=== PATIENT | male | born 1970 | race Caucasian/White ===

== ENCOUNTER 2016-12-22 15:27 | Observation (INO) ==
[2016-12-22] MEDS ORDERED: ceFAZolin 1,000 MG VIAL IM ONE (16:03)
[2016-12-22] MEDS ORDERED: DIPH/TET/ACEL PERT BOOSTER VACCINE 0.5 ML VIAL IM ONE ×2 (16:03→17:02)
--- NOTE | 2016-12-22 16:11 | Emergency Department Note ---
Goyo Chance Brittany, am scribing for, and in the presence of, Randy Jo MD 16:08. Deysi Chance Charles R, MD, personally performed the services described in this documentation, ascribed by Darcy Nance in my presence, and it is both accurate and complete 611 . Arrival - Arrival Chief Complaint: Extremity Injury Stated Complaint: cut the tip of his finger off ED Nursing Triage Note: C/o amputation to tip of left 3rd finger. States he got finger caught between two pieces of metal while at work earlier today. No active bleeding noted. Wound cleaned and dressed in triage. Mode of Arrival: Ambulatory Limitations: No Limitations Source: Patient, Significant other, RN Notes Reviewed Time Seen by Provider: 12/22/16 15:57 - History of Present Illness HPI Narrative: Patient is a 46 y/o white male presenting to the ED with c/o amputation of the left ring finger just prior to arrival. Patient states that he was working with a scissor lift when the tip of his left ring finger got caught between two sheets of metal, amputating distally through the middle of the nail bed. Patient says that at the moment he is not having any pain, just feels numbness. He is able to move the digit normally with normal sensation. No active bleeding noted. Patient is not in any acute distress. No other complaint/pain. Onset (ago): minute(s) Consistency: constant Allergies/Adverse Reactions: Allergies Allergy/AdvReac Type Severity Reaction Status Date / Time No Known Allergies Allergy Verified 12/22/16 15:43 Home Medications: Home Medications Medication Instructions Recorded Confirmed Type Diazepam Tab [Valium Tab] 10 mg PO DAILY 12/22/16 12/22/16 History Escitalopram [Lexapro] 20 mg PO DAILY 12/22/16 12/22/16 History Lisinopril [Zestril] 40 mg PO DAILY 12/22/16 12/22/16 History hydroCHLOROthiazide 12.5 mg PO DAILY 12/22/16 12/22/16 History [Hydrochlorothiazide] Review of System - Review of System 12 point system: reviewed and no additional remarkable complaints except as stated - Review of System Constitutional: Absent: chills, fever Head/Ears/Nose/Throat: Absent: nasal drainage Respiratory: Absent: respiratory distress Musculoskeletal: Present: as per HPI Skin: Present: as per HPI Medical,Surgical,& Family Hx - Medical History Cardio: History of: Hypertension Psychological: History of: Anxiety Disorders - Social History Smoking Status: Never smoker Frequency of Alcohol Use: None Type of Drug Use: None Exam Vital Signs: Vital Signs Temperature 98.9 F 12/22/16 16:06 Pulse Rate 95 H 12/22/16 16:06 Respiratory Rate 18 12/22/16 16:06 Blood Pressure 109/58 12/22/16 16:06 O2 Sat by Pulse Oximetry 96 12/22/16 15:39 - General Exam limited due to: other (exam limited to left ring finger) General appearance: alert, in no apparent distress - Head Head exam: Present: normocephalic - Eye Eye exam: Present: normal appearance, PERRL, EOMI - Neck Neck exam: Present: normal inspection - Chest Chest inspection: Present: normal inspection - Respiratory Respiratory exam: Present: normal lung sounds bilaterally - Cardiovascular Cardiovascular exam: Present: regular rate, normal rhythm, normal heart sounds - Extremities Exam Extremities exam: Present: full ROM. Absent: normal inspection (amputation of the tip of the left ring finger through mid nailbed distally, able to move normally and is neurovascularly intact despite feeling numbness, no active bleeding), tenderness - Neurological Exam Neurological exam: Present: alert, oriented X3, CN II-XII intact. Absent: motor sensory deficit - Psychiatric Psychiatric exam: Present: normal affect, normal mood - Skin Skin exam: Present: warm, dry Course - Consultations Consultation #1: Dr. Cortes will take patient to surgery for the distal traumatic amputation of the fourth phalanx Time: 16:16 Results - Diagnostic Findings Procedure: X-ray: report reviewed by me (Finger XR: Amputation of the tip of the left ring finger, possibly including the distal edge of the tuft of the distal phalanx.) Disposition Clinical Impression: Left Distal phalanx traumatic amputation, Fracture, finger, distal phalanx, open, Nailbed injury Case discussed with: patient, patient's family Condition: Stable Time of Disposition: 16:20
--- NOTE | 2016-12-22 16:19 | XRay Report ---
XR finger LT Indication: Amputation. Left ring finger 3 views: Soft tissue amputation of the tip of the left ring finger is present with exposure of the tuft of the distal phalanx. A portion of the tuft may be amputated as well but no significant residual fracture line is seen. No dislocation. Impression: Amputation of the tip of the left ring finger, possibly including the distal edge of the tuft of the distal phalanx. PROCEDURE INTERPRETED AT [facility] DEPARTMENT OF RADIOLOGY Final Report Signed by: Gume Eller M.D.
[2016-12-22] MEDS ORDERED: ceFAZolin 1,000 MG VIAL ONE (17:01)
--- NOTE | 2016-12-22 17:34 | Orthopedic History & Physical ---
History of Present Illness Chief complaint: Fingertip amputation left ring History of present illness: Mr. Hardin is a 46 year old male See dictated report Home Medications Medication Instructions Recorded Confirmed Type Diazepam Tab [Valium Tab] 10 mg PO DAILY 12/22/16 12/22/16 History Escitalopram [Lexapro] 20 mg PO DAILY 12/22/16 12/22/16 History Lisinopril [Zestril] 40 mg PO DAILY 12/22/16 12/22/16 History hydroCHLOROthiazide 12.5 mg PO DAILY 12/22/16 12/22/16 History [Hydrochlorothiazide] Allergies Allergy/AdvReac Type Severity Reaction Status Date / Time No Known Allergies Allergy Verified 12/22/16 15:43 Medical,Surgical,& Family Hx - Medical History Cardio: History of: Hypertension Psychological: History of: Anxiety Disorders - Social History Smoking Status: Never smoker Frequency of Alcohol Use: None Type of Drug Use: None Exam - Constitutional Vitals: Period Temp Pulse Resp BP Sys/Ferreira Pulse Ox Last 24 Hr 98.9 F-98.9 F 95-95 18-19 109-109/58-58 96
[2016-12-22] MEDS ORDERED: ONDANSETRON 4 MG/2 ML VIAL IV PRN (17:37)
[2016-12-22] MEDS ORDERED: HYDROmorphone 2 MG/1 ML VIAL IV PRN (17:37)
[2016-12-22] MEDS ORDERED: BUPIVACAINE 0.25% 50 ML VIAL ONE (17:40)
--- NOTE | 2016-12-22 17:42 | Discharge Summary ---
Hospital Course - Hospital Course Hospital Course: Admitted following fingertip amputation underwent formalization and repair discharged home Diagnosis - Discharge Diagnosis (1) Traumatic amputation of fingertip Status: Acute Discharge Plan - Discharge Data Disposition: Disch To Home/Self Care Condition at Discharge: Stable Discharge Diet: advance to your usual diet Activity: increase activity as tolerated Hygiene: may tub bathe Weight Bearing at Discharge: weight bear as tolerated - Discharge Medications New HYDROcodone/ACETAMIN 7.5-325 [Dudley 7.5-325] 1 tablet PO Q4H PRN #15 tablet PRN Reason: Pain Moderate (4-7) Continue hydroCHLOROthiazide [Hydrochlorothiazide] 12.5 mg PO DAILY Diazepam Tab [Valium Tab] 10 mg PO DAILY Lisinopril [Zestril] 40 mg PO DAILY Escitalopram [Lexapro] 20 mg PO DAILY - Follow Up or Referral - Forms/Instructions Additional Discharge Instructions: Discharge home discharge medications Narco as needed Keflex 5 days diet as tolerated keep dressing clean dry and intact follow-up on Tuesday, December 24 for initial dressing change call tomorrow for appointment Exam - Constitutional Vitals: Period Temp Pulse Resp BP Sys/Ferreira Pulse Ox Last 24 Hr 98.9 F-98.9 F 95-95 18-19 109-109/58-58 96 DS: Provider Discharging clinician: Cesar Cortes Jr., MD
[2016-12-22] MEDS ORDERED: LACTATED RINGERS 1,000 ML IV SCH (18:00)
[2016-12-22] MEDS ORDERED: ONDANSETRON 4 MG/2 ML VIAL ONE (18:26)
[2016-12-22] MEDS ORDERED: DESFLURANE 1 UNIT/15 MINUTE INH ONE (18:26)
[2016-12-22] MEDS ORDERED: MIDAZOLAM 2 MG/2 ML VIAL ONE (18:26)
[2016-12-22] MEDS ORDERED: ePHEDrine 50 MG/ML AMP ONE (18:26)
[2016-12-22] MEDS ORDERED: fentaNYL 100 MCG/2 ML VIAL ONE (18:26)
[2016-12-22] MEDS ORDERED: PROPOFOL 200 MG/20 ML VIAL IV ONE ×2 (18:26→18:27)
[2016-12-22] MEDS ORDERED: GLYCOPYRROLATE 0.4 MG/2 ML VIAL ONE (18:27)
[2016-12-22] MEDS ORDERED: ROCURONIUM 100 MG/10 ML VIAL IV ONE (18:27)
[2016-12-22] MEDS ORDERED: SUCCINYLCHOLINE 200 MG/10 ML VIAL ONE (18:27)
[2016-12-22] MEDS ORDERED: LACTATED RINGERS 1,000 ML IV ONE (18:27)
--- NOTE | 2016-12-22 18:48 | Anesthesia Post-Op ---
Anesthesia Post OP - Post Ansesthetic Evaluation Patient seen in post op: Yes Resp: within normal limits CV: within normal limits Mental: within normal limits Temp: within normal limits Guvt-[id number]: within normal limits Nausea and Vomiting: within normal limits Pain: within normal limits
--- NOTE | 2016-12-22 19:21 | History and Physical Report ---
DATE OF ADMISSION: 12/22/2016 ADMISSION NOTE A 46-year-old white male was involved in a traumatic event regarding his left hand earlier today, was pinched on a scissor lift cutting off the tip of his left ring finger. His tetanus has been updated . No other injuries were sustained. Now I was asked to evaluate regarding his open fingertip amputa tion left ring finger. MEDICATIONS: Valium, Lexapro, Zestril, hydrochlorothiazide. PAST MEDICAL HISTORY: Hypertension, anxiety disorder. ALLERGIES: NONE. PHYSICAL EXAMINATION GENERAL: Well-developed, well-nourished male. HEENT: Within normal limits. CHEST: Clear. HEART: Regular rate and rhythm. ABDOMEN: Soft and nontender. /RECTAL: Deferred. EXTREMITIES: There is no pain with gentle range of motion of either lower extremities or about the r ight upper on the left hand. He had dressing about the left ring finger, removing it reveals a finge rtip amputation through the distal phalanx left ring. The incision starts at just distal to the germ inal matrix of the nail extending out volarly and distally. No gross contamination. Radiograph conf irming a fingertip amputation through the distal phalanx. IMPRESSION: FINGERTIP AMPUTATION LEFT RING.
[2016-12-22 20:33] VITALS: BP 94/59
--- NOTE | 2016-12-23 15:28 | Operative Note ---
PREOPERATIVE DIAGNOSIS: FINGERTIP AMPUTATION, LEFT RING DISTAL PHALANX. POSTOPERATIVE DIAGNOSIS: FINGERTIP AMPUTATION, LEFT RING DISTAL PHALANX. OPERATIVE PROCEDURE: IRRIGATION AND DEBRIDEMENT OF OPEN FINGERTIP AMPUTATION WITH FORMALIZATION AND REPAIR (3 CM). SURGEON: Cesar Cortes Jr., MD ANESTHESIA: General. INDICATION: A 46-year-old white male who injured his left hand ring finger today when he caught in a mechanical lift and it pinched off the tip of his finger. We discussed with him preoperatively the need to formalize the amputation. He presents for procedure. OPERATIVE PROCEDURE: The patient was taken to operating room under general anesthetic positioned in the supine position. The left upper extremity prepped and draped in a usual sterile manner. He rece ived Ancef preoperatively as well as updating of his tetanus. The fingertip amputation was irritated and debridement. Sharp debridement was carried down dorsally to remove the germinal matrix of the n ail down to the bone and leaving a long volar flap to be brought up over the top. The bone was short ened using a bone cutter and rongeur. The wound was thoroughly irrigated with normal saline and then the volar flap brought over the tip of the finger using multiple vertical mattress sutures. Sterile dressing was then applied. The tourniquet was deflated at 17 minutes. He was taken to [facility] in a stable condition.
--- NOTE | 2016-12-24 19:20 | Pathology Report from [facility] ---
[facility] [place] ACCESSION # : [id number] PATIENT NAME : Hu Hardin ORDERING DR : CALEB FAITH JR, MD CLINICAL HX: Traumatic amputation of finger tip LT 4th finger, LT hand POST-OP DX: Same SPECIMEN INFO: Bone & tissue LT 4th finger GROSS DESCRIPTION: Received in formalin labeled HU HARDIN is a portion of a distal finger measuring 1.6 x 1.7 cm. A customer service representative section is submitted in one cassette. DIAGNOSIS FOR HU HARDIN: LEFT 4th FINGER TIP, TRAUMATIC AMPUTATION: Acral skin with ulceration and acute inflammation c/w trauma. COLLECTED DATE: 12/23/2016 [facility] [place] REPORT DATE: 12/24/2016 ELECTRONICALLY SIGNED BY: Sulma Cleaning M.D. 12/24/2016 - 11:13:36 [facility]
== END 2016-12-22 21:07 | disposition home or self-care (01) ==
LOC: N.EDINP 15:27 → N.ED 15:27 → N.3E 18:56
PROVIDERS: ADMIT Orthopaedic Surgery; ATTEND Orthopaedic Surgery